=== PATIENT | female | born 2000 | race Caucasian/White ===

== ENCOUNTER → 2022-07-19 | Outpatient (CLI) | payer OTHER ==
[~2022-07-19] MED LIST: DEXT30SU PO; DIAZ2 PO; IBUP400 PO; Sprintec1 EACH PO; Ventolin/Prove6.7 GM INH; Zithromax250 MG PO
[2022-07-22 06:11] LABS: HSV-1 DNA Negative (Negative); HSV-2 DNA Positive (Negative)
== END | disposition home or self-care (01) ==
LOC: LAB 17:06 → LAB SHORT 17:06
PROVIDERS: Emergency Medicine
DX: B02.9 Zoster without complications (principal)
CPT/HCPCS: 87529

== ENCOUNTER 2023-03-31 17:48 | Emergency (ER) | payer OTHER ==
[~2023-03-31] VITALS: Ht 175.3 cm; Wt 127.0 kg
[2023-03-31] MEDS ORDERED: FLUO10 PO (20:01)
[2023-03-31] MEDS ORDERED: ABILIFY MYCITE2 M2 (20:01)
[2023-03-31] MEDS ORDERED: HYDHCL25 (20:02)
[2023-03-31] MEDS ORDERED: BIRTH CONTROL (20:02)
[2023-03-31] MEDS ORDERED: ASPERFLEX1 EACH TOP (21:07)
[2023-03-31] MEDS ORDERED: Robaxin750 MG PO (21:07)
[2023-03-31 21:19] VITALS: BP 143/80
== END 2023-03-31 21:20 | disposition home or self-care (01) ==
LOC: ER 17:48
DX: M54.50 Low back pain, unspecified (principal); Z88.0 Allergy status to penicillin; Z88.8 Allergy status to other drugs, medicaments and biological substances; Z79.899 Other long term (current) drug therapy
CPT/HCPCS: 96372; 99283-25; A9270; J1885

== ENCOUNTER 2023-05-18 18:41 | Emergency (ER) | payer OTHER ==
[~2023-05-18] VITALS: Ht 175.3 cm; Wt 127.0 kg
[~2023-05-18 18:41] MED LIST changes: +ABILIFY MYCITE2 M2; +ASPERFLEX1 EACH TOP; +BIRTH CONTROL; +FLUO10 PO; +HYDHCL25; +Robaxin750 MG PO
[2023-05-18 18:47] VITALS: BP 162/92
[2023-05-18] MEDS ORDERED: IBUP800 PO (20:13)
[2023-05-18] MEDS ORDERED: CYCL10 PO (20:13)
[2023-05-18] MEDS ORDERED: LIDO700A20 TOP (20:13)
== END 2023-05-18 20:30 | disposition home or self-care (01) ==
LOC: ER 18:41
DX: S39.012A Strain of muscle, fascia and tendon of lower back, initial encounter (principal); X58.XXXA Exposure to other specified factors, initial encounter; Z88.0 Allergy status to penicillin; Z88.1 Allergy status to other antibiotic agents; Z79.899 Other long term (current) drug therapy
CPT/HCPCS: 99283-25; A9270; J1885